=== PATIENT | female | born 1990 | race Caucasian/White ===

== ENCOUNTER 2018-01-29 07:37 | Inpatient (IN) ==
[2018-01-29] MEDS ORDERED: *HR* Nalbuphine 10 MG/ML AMPUL IVP PRN (08:05)
[2018-01-29] MEDS ORDERED: Naloxone 0.4 MG/ML INJ IVP PRN (08:05)
[2018-01-29] MEDS ORDERED: Famotidine 20 MG/2 ML VIAL IVP PRN (08:05)
[2018-01-29] MEDS ORDERED: Metoclopramide 10 MG/2 ML VIAL IVP PRN (08:05)
[2018-01-29] MEDS ORDERED: Ringers Solution, Lactated 1,000 ML ONE (08:09)
[2018-01-29] MEDS: Ringers Solution, Lactated 1,000 ML IVC SCH ×3 (08:26→20:57)
[2018-01-29 08:57] LABS: Amphetamine Screen,Urine Negative ng/mL (Cutoff=1000); Barbiturate Screen,Urine Negative ng/mL (Cutoff=200); Benzodiazepines Screen,Urine Negative ng/mL (Cutoff=300); Cannabinoid Screen,Urine Negative ng/mL (Cutoff = 50); Cocaine Screen,Urine Negative ng/mL (Cutoff= 300); Opiate Screen,Urine Negative ng/mL (Cutoff=300); Phencyclidine Screen,Urine Negative ng/mL (Cutoff=25)
[2018-01-29 09:10] LABS: Basophils # 0.1 K/mcL (0.0-0.2); Basophils % 0.6 %; Eosinophils # 0.1 K/mcL (0.0-0.6); Eosinophils % 0.9 %; Hematocrit 31.1 % (35.3-44.9); Hemoglobin 11.1 g/dL (11.5-15.4); Immature Granulocytes % 0.7 % (0-4); Lymphocytes # 2.4 K/mcL (0.6-4.6); Lymphocytes % 17.1 %; Mean Corpuscular HGB Conc 35.7 g/dL (31.6-35.5); Mean Corpuscular Hemoglobin 32.2 pg (28.0-33.3); Mean Corpuscular Volume 90.1 fL (83.0-100.0); Mean Platelet Volume 10.5 fL (9.4-12.4); Monocytes # 0.7 K/mcL (0.0-1.3); Monocytes % 4.8 %; Neutrophils # 10.5 K/mcL (1.6-8.9); Platelet Count 258 K/mcL (140-400); Red Blood Count 3.45 M/mcL (3.82-4.97); Red Cell Distribution Width 14.1 % (11.5-14.5); Segmented Neutrophils % 75.9 %
[2018-01-29] MEDS ORDERED: Oxytocin 20 units/ LR 1000 mL 20 UNIT/1,000 ML BAG IVC SCH ×2 (10:00→23:30)
--- NOTE | 2018-01-29 10:33 | OB/GYN History & Physical ---
Date of Encounter: 01/29/18 Time of Encounter: 10:31 Assessment and Plan (1) 39 weeks gestation of Current visit: Yes Status: Acute Admit to Labor and Delivery for Induction of Labor Pain control with Epidural if requested GBS negative Anticipate Vaginal Delivery Dr. Chairez is the OB personal care attendant History of Present Illness Chief complaint: Induction of Labor HPI: Ms. Bruno is a 27 year old female who presents at 39 weeks 4 days for induction of labor. Pt endorses movement, and denies vaginal bleeding, leakage of fluid. Denies complications during this . Notes mild contractions at this time. Denies headache, blurry vision, SOB, nausea, vomiting, dysuria. Antepartum care with Dr. Mosqueda. Dr. Chairez is the OB provider personal care attendant. Lab Results: Blood Type: O negative RH Status: Negative GBS Status: Negative Hep B Surface Ag: Non reactive HIV Ab: Non reactive Treponema Ab: Negative G/C: Not Detected Varicella: Immune Rubella: Immune Urine Drug Screen: Negative Past Med Surg Social Fam HX - Past Medical History Attestation: Yes The following information was validated with the patient. Source: patient Medical history: no medical history Psychiatric history: no psych history - Past Surgical History Additional surgical history: tonsillectomy and adenoidectomy - Social History Smoking Status: Current every day smoker Packs per day: 1/2 Smokeless Tobacco Status: No Alcohol use: none Drug use: none - Family History Mother Living Status: Still Living Hx Family Cardiac Disorders: No Hx Family Respiratory Disorders: No Hx Family Cancer: Yes (cervical cancer) Hx Family GI Disorders: No Hx Family Genitourinary Disorders: No Hx Family Endocrine Disorder: No Hx Family Musculoskeletal Disorders: No Hx Family Neuromuscular Disorders: No Hx Family Neurologic Disorders: No Hx Family HEENT Disorders: No Hx Family Autoimmune Disorders: No Hx Family Reproductive Disorders: No Hx Family Psychosocial Disorders: No Hx Family Medical Disorders: No Obstetrical History - Pregnancies : 2 Para: 1 Term: 0 : 1 (36 weeks delivery) Ab's: 0 Livin Medications and Allergies Amoxicillin 875 mg PO BID #20 tablet 03/08/16 [Rx] Aspirin 03/08/16 [History] Ibuprofen [Motrin] 800 mg PO Q8HR PRN #30 tablet 03/08/16 [Rx] Amoxicillin/Clavulanate [Augmentin] 875 mg PO BIDWM #20 tablet 10/10/16 [Rx] Fluticasone Propionate Nasal [Flonase] 120 spray NS DAILY #1 bottle 10/10/16 [Rx ] Ibuprofen [Motrin] 800 mg PO Q8HR #30 tablet 10/10/16 [Rx] Loratadine/Pseudophed (12 HR) [Claritin D (12HR)] 1 each PO BID #20 tab.er.12h 10/10/16 [Rx] 3 Allergy/AdvReac Type Severity Reaction Status Date / Time No Known Allergies Allergy Verified 03/08/16 14:03 Review of System OB All systems PM: reviewed and no additional remarkable complaints except as stated Exam - Vital Signs Vital signs: Initial Vital Signs Temp Pulse Resp BP 98.0 F 86 16 108/65 01/29/18 07:53 01/29/18 07:53 01/29/18 07:53 01/29/18 07:53 - Constitutional Constitutional: well developed, well nourished, no acute distress, average body habitus - HEENT HEENT: EOMI, Normocephaly, Mucus Membranes Moist - Neck Neck exam: full ROM - Lungs Respiratory exam: CTAB - Cardiovascular Cardiovascular exam: RRR, +S1, +S2 - Abdomen Abdomen: Present: bowel sounds normal, gravid, non tender - Extremities Extremities exam: full ROM, normal capillary refill, normal inspection, warm, radial pulses palpable and symmetrical Deep Tendon Reflex Grade: 2+ Normal - Cervix Dilation: 3 (Per RN) Effacement: 70 Station: -1 - Comments Comments: FHR = 160s; Category 1 tracing Results Result Diagrams: 01/29/18 08:00 Abnormal lab results WBC 13.8 K/mcL (4.3-11.1) H 01/29/18 08:00 RBC 3.45 M/mcL (3.82-4.97) L 01/29/18 08:00 Hgb 11.1 g/dL (11.5-15.4) L 01/29/18 08:00 Hct 31.1 % (35.3-44.9) L 01/29/18 08:00 MCHC 35.7 g/dL (31.6-35.5) H 01/29/18 08:00 Neutrophils # 10.5 K/mcL (1.6-8.9) H 01/29/18 08:00 All other labs normal. - VTE Reasons for not Prescribing Prophylaxis: Treatment not Indicated - Low risk for VTE
--- NOTE | 2018-01-29 14:27 | OB Labor Progress Note ---
Date of Encounter: 01/29/18 Time of Encounter: 14:26 Labor Progress Note - Subjective Subjective: patient is feeling more of her ctxs, she is on 8 of pitocin - Vital Signs Vital Signs: VSS - Cervix Cervix: 4/80% - Heart Tones Heart Tones: CAT 1 - La Sal La Sal: Q1-3 - Plan Plan: patient AROM'ed, ok for epidural if she desires, anticipate
[2018-01-29] MEDS ORDERED: Bupivacaine-MPF 0.25% 10 ML VIAL EP ONE (14:51)
[2018-01-29] MEDS ORDERED: *HR* FentaNYL (PF) 100 MCG/2 ML VIAL EP ONE (14:51)
[2018-01-29] MEDS ORDERED: *HR* FentaNYL (PF) 100 MCG/2 ML VIAL ONE (14:53)
[2018-01-29] MEDS ORDERED: Bupivacaine-MPF 0.25% 10 ML VIAL ONE (14:53)
[2018-01-29] MEDS ORDERED: Lidocaine -MPF 2% 5 ML VIAL ONE (14:54)
[2018-01-29] MEDS ORDERED: Epidural Premix (fent/bupiv) 110 ML EP SCH (15:00)
--- NOTE | 2018-01-29 15:30 | Anesthesia Evaluation PreOp ---
Date of Encounter: 01/29/18 Time of Encounter: 14:57 - Past History Planned Operation: [facility] Cardiac History: Denies any Significant Hx Pulmonary History: Smoker, Pack/yr (8) [employer] History: Denies Any Significant HX Other Medical History: Denies Any Significant HX Anesthesia History: No Prior Anesthetic Complications : Yes Alcohol Use: none Drug use: none Medications and Allergies Amoxicillin 875 mg PO BID #20 tablet 03/08/16 [Rx] Aspirin 03/08/16 [History] Ibuprofen [Motrin] 800 mg PO Q8HR PRN #30 tablet 03/08/16 [Rx] Amoxicillin/Clavulanate [Augmentin] 875 mg PO BIDWM #20 tablet 10/10/16 [Rx] Fluticasone Propionate Nasal [Flonase] 120 spray NS DAILY #1 bottle 10/10/16 [Rx ] Ibuprofen [Motrin] 800 mg PO Q8HR #30 tablet 10/10/16 [Rx] Loratadine/Pseudophed (12 HR) [Claritin D (12HR)] 1 each PO BID #20 tab.er.12h 10/10/16 [Rx] 3 Allergy/AdvReac Type Severity Reaction Status Date / Time No Known Allergies Allergy Verified 03/08/16 14:03 - Meds/Allergy Pre-op Review Medications Reviewed: Yes Allergies Reviewed: Yes Beta Blockers on Current Med List: No Anesthesia Results - Labs 01/29/18 08:00 Anesthesia Exam O2 Sat Height 1.47 m Height 1.47 m Weight 42.354 kg Weight 42.354 kg Vital Signs Temp Pulse Resp BP 98.0 F 86 16 108/65 01/29/18 07:53 01/29/18 07:53 01/29/18 07:53 01/29/18 07:53 NPO (# of Hours): solids > 8hrs Pain Scale: 7 Pain Scale Used: Numeric (1 - 10) - HEENT Pupil (Motor): Pupils equal Mallampati: II Teeth: Normal Oral Opening: Greater than 3 - [employer] LOC: Oriented [employer] Motor: Normal RUE, Normal LUE, Normal RLE, Normal LLE, Normal Face [employer] Sensory: Normal: RUE, LUE, RLE, LLE, Face - Cardiac Rhythm: Regular Murmur: None - Pulmonary Breath Sounds: bilateral Clear Respiratory Effort: Symmetrical Anesthesia Assess/Plan ASA Score: 2 Modified [place] Scale for Level of Consciousness: Anixous, agitated or restless Anesthetic Plan: Regional Autologous Blood: No Monitoring Plan: Standard Monitors Recovery Plan: Other
--- NOTE | 2018-01-29 15:32 | Anesthesia Procedures ---
Date of Encounter: 01/29/18 Time of Encounter: 14:57 Procedures: Anesthesia - Epidural/Spinal Patient ID/Chart reviewed: Yes Patient examined: Yes OB Eval: Gestational age: 39 weeks 4 days OB Eval: : 2 OB Eval: Hx Para: 1 OB Eval: Dilated at (cm): 4 OB Eval: Contractions: Non-stressed pattern Consent Obtained: Yes Supplemental Oxygen: None/Room Air Site Prep: Aseptic Technique, Sterile prep and drape, Povidone-Iodine 1% Patient position: upright Local Anesthetic: Lidocaine 1% Amount of Local Anesthetic used: 3 Touhy Needle Gauge: 18 Touhy Needle Depth (cm): 3 (technically 3.5 cm) Catheter Depth at Skin (cm): 7 (technically 7.5 cm) Test Dose (1.5% Lido + Epi): Volume given (mls): 5 Test Dose Result: Negative Loading Dose: 0.25% Marcaine (mls): 5 Loading Dose: Fentanyl (mcg): 100 Loading Dose Administered: Thru Catheter Infusion Med: 0.125% Bupivacaine w/ 2 mcg/ml Fentanyl Infusion Rate (mls/hr): 12 (w/ demand bolus of 4mL q30min PRN) Catheter Secured in Place: Tegaderm, Tape Interspace Used: L3-L4 Loss of Resistance (CHRIS): Yes Blood: No CSF: No Paresthesia: No Procedure: successful on 1st attempt; patient tolerated procedure well; VSS Vitals + FHT's: Please see Naomy WYLIE's electronic records
--- NOTE | 2018-01-29 18:30 | OB Labor Progress Note ---
Date of Encounter: 01/29/18 Time of Encounter: 18:29 Labor Progress Note - Subjective Subjective: s/p epidural and comfortable - Vital Signs Vital Signs: VSS - Cervix Cervix: 6cm - Heart Tones Heart Tones: CAT 1 - Plan Plan: cont monitoring anticipate
--- NOTE | 2018-01-29 23:01 | OB/GYN Procedure Note ---
Delivery - Delivery Date: 01/29/18 Provider: Ynes Chairez Intrapartum events: none Delivery induction: oxytocin Delivery augmentation: rupture of membranes Delivery monitor: external uterine, internal uterine Anesthesia: epidural Quantitated Blood Loss: 100 - (s) A Delivery Date: 01/29/18 Infant Delivery Time: 22:14 Presentation: vertex Position: OA Gender: Female Viability: Viable Weight Gram: 2.655 kg at 1 minute: 9 at 5 mins: 10 Shoulder Dystocia: not encountered Specimens collected: cord blood Placenta: spontaneous Cord: 3 umbilical vessels - Repair Episiotomy: none Laceration Description: Periurethral - Complications Delivery complications: none - Disposition Mom disposition: stable in LDR [place] disposition: stable in LDR - Comments Comments: 27 y/o now delivered a viable female infant weighing 2655g (5lbs 14oz) @ 2214hrs. Infant delivered OA, 3 VC, APGARs 9/10, placenta delivered @ 2217hrs. EBL 100cc, mother and infant stable.
[2018-01-29] MEDS ORDERED: Measles/Mumps/Rubella Vacc 0.5 ML VIAL SQ PRN (23:18)
[2018-01-29] MEDS ORDERED: Acetaminophen 325 MG TABLET PO PRN (23:18)
[2018-01-30] MEDS: Ibuprofen 600 MG TABLET PO PRN ×3 (01:48→22:00)
[2018-01-30 06:07] LABS: Basophils # 0.1 K/mcL (0.0-0.2); Basophils % 0.4 %; Eosinophils # 0.1 K/mcL (0.0-0.6); Eosinophils % 0.3 %; Hematocrit 26.7 % (35.3-44.9); Hemoglobin 9.6 g/dL (11.5-15.4); Immature Granulocytes % 0.6 % (0-4); Lymphocytes # 1.8 K/mcL (0.6-4.6); Lymphocytes % 8.7 %; Mean Corpuscular Hemoglobin 31.9 pg (28.0-33.3); Mean Corpuscular Volume 88.7 fL (83.0-100.0); Mean Platelet Volume 10.3 fL (9.4-12.4); Monocytes % 5.1 %; Neutrophils # 17.2 K/mcL (1.6-8.9); Platelet Count 218 K/mcL (140-400); Red Blood Count 3.01 M/mcL (3.82-4.97); Red Cell Distribution Width 13.9 % (11.5-14.5); Segmented Neutrophils % 84.9 %
[2018-01-30] MEDS ORDERED: Rho Immune Globulin 1,500 UNIT SYRINGE IM ONE (09:04)
[2018-01-30] MEDS: Prenatal Vit/FA 1 EACH TABLET PO SCH (09:58)
--- NOTE | 2018-01-30 11:05 | OB/GYN Progress Note ---
Date of Encounter: 01/30/18 Time of Encounter: 11:03 - Assessment and Plan (1) Vaginal delivery Current Visit: Yes Status: Acute Stable PPD #1 Continue current management, Anticipate DC tomorrow (2) (infant) Current Visit: Yes Status: Acute Subjective - Subjective Interval history: Pt states feeling well, pain well managed on po pain medication, tolerates regular diet, . Patient reports: appetite normal, voiding normally, pain well controlled, ambulating normally : doing well, nursing well Objective - Latest Vital Signs Latest vital signs: Vital Signs Temp Pulse Resp BP Pulse Ox 01/30/18 07:30 97.5 F L 75 16 116/76 01/30/18 02:40 98.3 F 80 16 103/68 97 01/30/18 01:40 98.3 F 74 14 109/67 97 01/30/18 00:30 98.1 F 73 14 119/78 98 Intake and Output 01/29/18 01/30/18 01/30/18 23:59 07:59 15:59 Intake Total 1000 / 1000 460 / 460 Output Total 1500 / 1500 Balance 1000 / 1000 -1040 / -1040 Intake: IV Fluids 1000 / 1000 Lactated Ringers 1,000 ML @ 125 1000 / 1000 mls/hr IVC .Q8H DEZ Rx#: [id number] Oral 460 / 460 Output: Urine 1500 / 1500 Other: Meal Breakfast Percent of Meal Consumed 90% - Exam Lungs: bilateral: normal Chest: Normal S1, Normal S2 Extremities: Present: normal Abdomen: Present: normal appearance, soft Uterus: Present: firm (U) - Labs Labs: Laboratory Results - last 24 hr 01/29/18 01/30/18 23:12 05:53 WBC 20.3 H RBC 3.01 L Hgb 9.6 L D Hct 26.7 L MCV 88.7 MCH 31.9 MCHC 36.0 H RDW 13.9 Plt Count 218 MPV 10.3 Immature Gran % 0.6 Seg Neutrophils % 84.9 Lymphocytes % 8.7 Monocytes % 5.1 Eosinophils % 0.3 Basophils % 0.4 Neutrophils # 17.2 H Lymphocytes # 1.8 Monocytes # 1.0 Eosinophils # 0.1 Basophils # 0.1 Screen NEGATIVE Baby's Blood Type O RH POSITIVE Mother's Blood Type O RH NEGATIVE Rhogam Indicated YES Rhogam Req for Mother 1
[2018-01-30] MEDS ORDERED: Lanolin 7 G OINT...G. TP PRN (21:15)
[2018-01-31 09:27] VITALS: BP 114/63
--- NOTE | 2018-01-31 09:53 | Discharge Summary ---
Date of Encounter: 01/31/18 Time of Encounter: 09:50 - Discharge Diagnosis (1) Vaginal delivery Priority: Primary Status: Acute Comments: S/P vaginal delivery day 2. VSS Pain is well controlled Lochia is light and without clots Voiding and passing flatus without difficulty Breast feeding well. Discharge home today. (2) () Priority: Secondary Status: Acute - Discharge Medications Prescriptions: Ibuprofen [Motrin] 600 mg PO Q6HR PRN #30 tablet PRN Reason: Cramping Breast Pump [BREAST PUMP] 1 each .ROUTE AD #1 each Docusate [Colace] 100 mg PO BID PRN #30 capsule PRN Reason: Constipation Ferrous Sulfate 325 mg PO DAILY #90 tablet Home Medications: Aspirin 03/08/16 [History] Fluticasone Propionate Nasal [Flonase] 120 spray NS DAILY #1 bottle 10/10/16 [Rx ] Acetaminophen [Tylenol] 650 mg PO Q6HR PRN tablet 01/31/18 [Rx] Breast Pump [BREAST PUMP] 1 each .ROUTE AD #1 each 01/31/18 [Rx] Docusate [Colace] 100 mg PO BID PRN #30 capsule 01/31/18 [Rx] Ferrous Sulfate 325 mg PO DAILY #90 tablet 01/31/18 [Rx] Ibuprofen [Motrin] 600 mg PO Q6HR PRN #30 tablet 01/31/18 [Rx] Lanolin [Lansinoh] 1 appl TP TID PRN oint...g. 01/31/18 [Rx] Vit/FA 1 each PO DAILY tablet 01/31/18 [Rx] Allergies/Adverse Reactions: 3 Allergy/AdvReac Type Severity Reaction Status Date / Time No Known Allergies Allergy Verified 03/08/16 14:03 Data Procedures and tests throughout hospitalization: Laboratory Tests 01/29/18 01/29/18 01/29/18 08:00 08:00 23:12 WBC 13.8 H RBC 3.45 L Hgb 11.1 L Hct 31.1 L MCV 90.1 MCH 32.2 MCHC 35.7 H RDW 14.1 Plt Count 258 MPV 10.5 Immature Gran % 0.7 Seg Neutrophils % 75.9 Lymphocytes % 17.1 Monocytes % 4.8 Eosinophils % 0.9 Basophils % 0.6 Neutrophils # 10.5 H Lymphocytes # 2.4 Monocytes # 0.7 Eosinophils # 0.1 Basophils # 0.1 Urine Opiates Screen Negative Ur Barbiturates Screen Negative Ur Phencyclidine Scrn Negative Ur Amphetamines Screen Negative U Benzodiazepines Scrn Negative Urine Cocaine Screen Negative U Marijuana (THC) Screen Negative Ur Drug Screen Interp See Below Screen NEGATIVE Baby's Blood Type O RH POSITIVE Mother's Blood Type O RH NEGATIVE Rhogam Indicated YES Rhogam Req for Mother 1 01/30/18 05:53 WBC 20.3 H RBC 3.01 L Hgb 9.6 L D Hct 26.7 L MCV 88.7 MCH 31.9 MCHC 36.0 H RDW 13.9 Plt Count 218 MPV 10.3 Immature Gran % 0.6 Seg Neutrophils % 84.9 Lymphocytes % 8.7 Monocytes % 5.1 Eosinophils % 0.3 Basophils % 0.4 Neutrophils # 17.2 H Lymphocytes # 1.8 Monocytes # 1.0 Eosinophils # 0.1 Basophils # 0.1 Urine Opiates Screen Ur Barbiturates Screen Ur Phencyclidine Scrn Ur Amphetamines Screen U Benzodiazepines Scrn Urine Cocaine Screen U Marijuana (THC) Screen Ur Drug Screen Interp Screen Baby's Blood Type Mother's Blood Type Rhogam Indicated Rhogam Req for Mother Date of admission: 01/29/18 07:37 Primary care physician: PCP NONE Consults: 01/29/18 23:18 Consult to [employer] [CONS] Routine Comment: Vaginal delivery, consult needed Discharging clinician: Ramonita Davey Anticipated date of discharge: 01/31/18 - Patient Status Disposition: Home, Self-Care Condition: Good Functional capacity at discharge: independent ambulation Overall status at discharge: patient is progressing back to baseline - Discharge Instructions Follow Up With: NONE,PCP [Primary Care Provider] - Ynes Chairez MD [Partnered Physician] - - Diet and Activity Activity: increase activity as tolerated Diet: regular diet Hospital Course Reason for admission: IUP at term Delivery: Episiotomy: none Other procedures: none complications: none Discharge diagnosis: IUP at term delivered [place] baby: female Time Attestation: Total time spent providing and/or coordinating discharge services: Time Spent: Less than 30 minutes Exam - Constitutional Vitals: Temp Pulse Resp BP Pulse Ox 98.1 F 86 16 114/63 98 01/31/18 08:05 09/01/18 08:05 01/31/18 08:05 01/31/18 08:05 01/31/18 08:05 General appearance IM: cooperative, A&O X 3, pleasant - Respiratory Respiratory exam: Present: CTAB - Cardiovascular Cardiovascular exam IM: Present: RRR, +S1, +S2 - GI/Abdominal GI/Abdominal exam IM: normal bowel sounds, soft - Rectal Rectal exam: deferred - Uterine Tone: Firm Uterus Position: At Umbilicus, Midline - Extremities Exam Extremities exam IM: Present: normal capillary refill, normal inspection, radial pulses palpable and symmetrical - Neurological Exam Neurological exam: alert, oriented X3
== END 2018-01-31 11:15 | disposition home or self-care (01) | DRG 560 ==
LOC: 1NENULAB 07:37 → 1NENUOBS 01-30 00:22
PROVIDERS: ADMIT Student in an Organized Health Care Education/Training Program; ATTEND Student in an Organized Health Care Education/Training Program